=== PATIENT | female | born 1970 | race Caucasian/White ===

== ENCOUNTER → 2020-08-16 | Outpatient (CLI) | payer OTHER ==
--- NOTE | 2020-08-20 11:33 | MM ---
Reason for exam: screening (asymptomatic). Last mammogram was performed 10 months ago. History: Family history of breast cancer in maternal grandmother at age 60. Implants in both breasts, 2019. Physical Findings: A clinical breast exam by your physician is recommended on an annual basis and results should be correlated with mammographic findings. MG 3D Screen Mammo Imp/Cad Bilateral CC, MLO, and ID view(s) were taken. Prior study comparison: October 18, 2019, mammogram, performed at [place]. August 28, 2016, mammogram, performed at [place]. There are scattered fibroglandular densities. Bilateral implants are intact. No significant changes when compared with prior studies. ASSESSMENT: Benign, BI-RAD 2 RECOMMENDATION: Routine screening mammogram of both breasts in 1 year.
== END | disposition home or self-care (01) ==
LOC: RADMAMWWP 07:13
PROVIDERS: ATTEND Family Medicine
DX: Z12.31 Encounter for screening mammogram for malignant neoplasm of breast (principal); Z80.3 Family history of malignant neoplasm of breast
CPT/HCPCS: 77063; 77067

== ENCOUNTER → 2021-06-04 | Outpatient (CLI) | payer OTHER ==
--- NOTE | 2021-06-04 08:33 | CT ---
EXAMINATION TYPE: CT brain w con DATE OF EXAM: 06/04/2021 COMPARISON: None available HISTORY: migraines CT DLP: 999.8 mGycm Automated exposure control for dose reduction was used. TECHNIQUE: Multiplanar CT scan of the brain is performed after IV contrast administration. FINDINGS: 6 mm nonenhancing hypodensity seen in the left parietal subcortical white matter, nonspecific. No tia rounding vasogenic edema or significant mass effect. Otherwise unremarkable morphology of the cerebra l hemispheres, cerebellum and brainstem. No acute intracranial hemorrhage or gross acute cortical infarct. No midline shift, herniation or manuela triculomegaly. Unremarkable basal cisterns, sella and CP angles. No gross space-occupying lesion, vas ogenic edema or mass effect. No area of abnormal enhancement, meningeal thickening or hyperenhancement. Patent major intracranial vessels. Unremarkable orbits. Clear visualized paranasal sinuses and mastoid air cells. Unremarkable calvarial bones. IMPRESSION: 6 mm nonenhancing hypodensity in the left parietal subcortical white matter, nonspecific. It could be related to a tiny infarct however other white matter abnormalities like demyelinating disease cannot be excluded. Recommend further enhanced MRI assessment. No other significant intracranial abnormalit y identified.
== END | disposition home or self-care (01) ==
LOC: RADCTMAIN 07:30
PROVIDERS: ATTEND Family Medicine
DX: G43.909 Migraine, unspecified, not intractable, without status migrainosus (principal)
CPT/HCPCS: 70460; Q9967

== ENCOUNTER → 2021-06-06 | Outpatient (CLI) | payer OTHER | END | disposition home or self-care (01) | LOC: RADMRIMAIN 20:48 | PROVIDERS: ATTEND Physician Assistant Medical | DX: Z53.9 Procedure and treatment not carried out, unspecified reason (principal) ==

== ENCOUNTER → 2022-03-27 | Outpatient (CLI) | payer OTHER ==
--- NOTE | 2022-03-30 08:19 | MM ---
Reason for Exam: Screening (asymptomatic). Last mammogram was performed 1 year(s) and 8 month(s) ago. Patient History: Menarche at age 16. First Full-Term at age 22. 2019, Bilateral Implants. Maternal grandmother had breast cancer, age 60. Mother had breast cancer, age 77. Last menstrual period: 03/27/2022 Risk Values: Sharon 5 year model risk: 1.6%. NCI Lifetime model risk: 15.3%. Prior Study Comparison: 08/28/2016 Screening Mammogram, [place]. 10/18/2019 Screening Mammogram, [place]. 08/16/2020 Bilateral Screening Mammogram, [facility]. Tissue Density: There are scattered fibroglandular densities. Findings: Analyzed By CAD. There is no suspicious group of microcalcifications or new suspicious mass in either breast. Bilateral implants are intact. Overall Assessment: Benign, BI-RAD 2 Management: Screening Mammogram of both breasts in 1 year. A clinical breast exam by your physician is recommended on an annual basis and results should be correlated with mammographic findings. Electronically signed and approved by: Lalo Watts M.D. [facility]
== END | disposition home or self-care (01) ==
LOC: RADMAMWWP 14:29
PROVIDERS: ATTEND Family Medicine
DX: Z12.31 Encounter for screening mammogram for malignant neoplasm of breast (principal); Z80.3 Family history of malignant neoplasm of breast
CPT/HCPCS: 77063; 77067